=== PATIENT | female | born 1950 | race Caucasian/White ===

== ENCOUNTER 2022-08-22 05:43 | Observation (INO) | payer MEDICARE, BC ==
[2022-08-19 15:48] VITALS: BMI 22.8
[2022-08-22] MEDS ORDERED: Bupivacaine HCl 0.5%/Epinephrine 1:200,000/PF 30 ml Vial ONE (06:26)
[2022-08-22] MEDS ORDERED: Bupivacaine 0.25% HCL 30 ML VIAL ONE (06:26)
[2022-08-22] MEDS ORDERED: Vasopressin 20 UNITS/ML VIAL ONE (06:27)
[2022-08-22] MEDS ORDERED: Fentanyl 100 MCG/2 ML VIAL ONE ×2 (06:51→06:53)
[2022-08-22] MEDS ORDERED: Rocuronium Bromide 10 MG/ML (10ML VIAL) ONE (06:54)
[2022-08-22] MEDS ORDERED: PROPOFOL 60 ML ONE (06:54)
[2022-08-22] MEDS ORDERED: Lidocaine 1% PF 5 ML VIAL ONE (06:54)
[2022-08-22] MEDS ORDERED: ePHEDrine Sulfate 50 MG/10 ML VIAL ONE (06:56)
[2022-08-22] MEDS ORDERED: CEFAZOLIN 2 GM VIAL ONE (07:10)
[2022-08-22] MEDS ORDERED: Dexamethasone 20 MG/5 ML VIAL ONE (07:58)
[2022-08-22] MEDS ORDERED: Albumin 5% 250 ML ONE (08:05)
[2022-08-22] MEDS ORDERED: Glycopyrrolate 0.2 MG/ML 5 ML SYRINGE ONE (08:13)
[2022-08-22] MEDS ORDERED: PHENYLEPHRINE-NS 100 MCG/ML 10 ML SYRINGE ONE (09:09)
[2022-08-22] MEDS ORDERED: Ondansetron PF 4 MG/2 ML Vial ONE (11:10)
[2022-08-22] MEDS ORDERED: Simethicone Chewable 80 MG TAB PO PRN (12:48)
[2022-08-22] MEDS ORDERED: Ondansetron PF 4 MG/2 ML Vial IVP PRN (12:48)
[2022-08-22] MEDS ORDERED: diphenhydrAMINE 25 MG CAP PO PRN (12:48)
[2022-08-22] MEDS ORDERED: Bisacodyl 10 MG SUPP PR PRN (12:48)
[2022-08-22] MEDS ORDERED: Acetaminophen 325 MG TAB PO PRN (12:48)
[2022-08-22] MEDS: Morphine 2 MG/ML VIAL SLOW IVP PRN ×2 (13:13→13:54)
[2022-08-22] MEDS: Lactated Ringer's 1,000 ML IV SCH (13:15)
[2022-08-22] MEDS ORDERED: Estradiol 0.05mg/24 Hour Patch (Weekly) TD SCH (14:00)
[2022-08-22] MEDS ORDERED: Morphine 4 MG/ML VIAL SLOW IVP PRN (14:22)
[2022-08-22] MEDS: Ketorolac Tromethamine 30 MG/ML VIAL IVP SCH (16:17)
[2022-08-22] MEDS: HYDROcodone/Acetaminophen 10/325 mg Tablet PO PRN ×2 (18:17→22:17)
[2022-08-23] MEDS: Ketorolac Tromethamine 30 MG/ML VIAL IVP SCH ×2 (00:13→06:03)
[2022-08-23] MEDS: Lactated Ringer's 1,000 ML IV SCH ×3 (00:18→11:55)
[2022-08-23 05:27] LABS: Hemoglobin 10.8 g/dL (12.0-15.5); Mean Corpuscular Hemoglobin 29.3 pg (27.0-33.0); Mean Corpuscular Volume 88.9 fl (81.6-98.3); Mean Platelet Volume 10.1 fl (7.4-10.4); Platelet Count 185 10x3/uL (150-450); RBC Distribution Width 14.3 % (11.5-14.5); Red Blood Cell (RBC) Count 3.68 10x6/uL (3.90-5.03); White Blood Cell (WBC) Count 14.9 10x3/uL (3.5-10.5)
[2022-08-23] MEDS: HYDROcodone/Acetaminophen 10/325 mg Tablet PO PRN ×2 (08:53→14:09)
[2022-08-23 12:44] VITALS: BP 136/60; TEMP 98.2
== END 2022-08-23 14:20 | disposition home or self-care (01) ==
LOC: CSHSDC 05:43 → CSHPP 12:47 → INTOOBSV 12:47
PROVIDERS: ADMIT Obstetrics & Gynecology; ATTEND Obstetrics & Gynecology
PROC: 0UT94ZZ Resection of Uterus, Percutaneous Endoscopic Approach (ICD-10-PCS; principal; 2022-08-22)
PROC: 0UT24ZZ Resection of Bilateral Ovaries, Percutaneous Endoscopic Approach (ICD-10-PCS; 2022-08-22)
PROC: 0UT74ZZ Resection of Bilateral Fallopian Tubes, Percutaneous Endoscopic Approach (ICD-10-PCS; 2022-08-22)
PROC: 0JQC3ZZ Repair Pelvic Region Subcutaneous Tissue and Fascia, Percutaneous Approach (ICD-10-PCS; 2022-08-22)
PROC: 0JQC3ZZ Repair Pelvic Region Subcutaneous Tissue and Fascia, Percutaneous Approach (ICD-10-PCS; 2022-08-22)
DX: N80.03 Adenomyosis of the uterus (principal); D25.9 Leiomyoma of uterus, unspecified; N95.0 Postmenopausal bleeding; G43.909 Migraine, unspecified, not intractable, without status migrainosus; I48.91 Unspecified atrial fibrillation; I10 Essential (primary) hypertension; E03.9 Hypothyroidism, unspecified; Z85.038 Personal history of other malignant neoplasm of large intestine; Z79.899 Other long term (current) drug therapy; Z85.3 Personal history of malignant neoplasm of breast
CPT/HCPCS: 57260; 57282; 58571; 85027; 96374; 96375; 96376 ×2; C1713; C1776; G0378 ×2; P9045; Q9968; 36415; 88307; J1100; J1885; J2270; J2272; J2405; J2704; J3010; J7120; S0020

== ENCOUNTER 2024-03-03 11:55 | Outpatient (CLI) | payer MEDICARE, BC | END 2024-03-03 11:56 | disposition home or self-care (01) | LOC: CSHMAMMO 11:55 | PROVIDERS: ATTEND Obstetrics & Gynecology | DX: Z12.31 Encounter for screening mammogram for malignant neoplasm of breast (principal); Z80.3 Family history of malignant neoplasm of breast; Z85.820 Personal history of malignant melanoma of skin | CPT/HCPCS: 77063; 77067 ==